=== PATIENT | male | born 1985 | race Caucasian/White ===

== ENCOUNTER 2016-10-28 11:25 | Emergency (ER) | payer BC ==
[~2016-10-28] VITALS: Ht 180.3 cm; Wt 94.1 kg
[2016-10-28 13:08] LABS: HEMATOCRIT 42.6 % (38.0-50.0); MCH 29.8 PG (29.0-34.0); MCHC 35.2 G/DL (30.0-36.0); MCV 84.5 FL (86-99); MEAN PLAT.VOLUME 10.1 uM^3 (9.0-12.4); PLATELET COUNT 220 K/uL (156-360); RBC DIS.WIDTH-CV 12.1 % (11.8-14.6); RBC DIS.WIDTH-SD 36.7 % (39-53); RED BLOOD COUNT 5.04 M/uL (4.00-5.50); WHITE BLOOD COUNT 7.1 K/uL (4.1-10.2)
[2016-10-28 13:20] LABS: CHLORIDE 107 mEq/L (99-109); SODIUM 142 mEq/L (136-147)
[2016-10-28 13:22] LABS: GLUCOSE 92 mg/dL (70-99)
[2016-10-28 13:24] LABS: ANION GAP 11 MEQ/L (2-14)
[2016-10-28 13:26] LABS: GFR ESTIMATE (CALCULATED) > 59 mL/min/
[2016-10-28 13:27] LABS: UREA NITROGEN (BUN) 14 mg/dL (9-23)
[2016-10-28 13:29] LABS: TROP-I INTERPRETATION NEGATIVE; TROPONIN-I < 0.01 ng/mL (0.0-0.30)
[2016-10-28 14:56] VITALS: BP 125/86
== END 2016-10-28 15:07 | disposition home or self-care (01) ==
LOC: EME 11:25
PROVIDERS: Emergency Medicine
DX: R55 Syncope and collapse (principal); Z88.5 Allergy status to narcotic agent
CPT/HCPCS: 80048; 84484; 85027; 93005; 99281; 99284; J7030